=== PATIENT | male | born 1960 | race Hispanic/Latino ===

== ENCOUNTER 2017-08-03 10:48 | Outpatient (CLI) | payer OTHER ==
[2017-08-03 13:00] LABS: Hemoglobin 16.1 g/dL (14.0-18.0); Mean Corpuscular HGB CONC 33.7 g/dL (32.0-36.0); Mean Corpuscular Hemoglobin 30.3 pg (27.0-31.0); Mean Corpuscular Volume 89.7 fl (80.0-94.0); Mean Platelet Volume 7.5 fL (7.4-10.4); Platelet Count 265 thou/uL (130-400); RBC Distribution Width 11.7 % (11.5-14.5); Red Blood Cell (RBC) Count 5.32 mill/uL (4.70-6.10); White Blood Cell (WBC) Count 8.3 thou/uL (4.8-10.8)
[2017-08-03 13:15] LABS: INR-International Normal Ratio 1.1; PTT 33.1 SEC (22.9-36.1); Prothrombin Time 14.3 SEC (12.0-14.7)
[2017-08-03 13:16] LABS: Bilirubin Negative (Negative); Blood, Urine Negative (Negative); Clarity CLEAR (Clear); Glucose, Urine (Dipstick) Negative (Negative); Leukocyte Negative (Negative); Nitrite Negative (Negative); Protein, Urine (Dipstick) Negative (Neg-Trace); Specific Gravity, Urine 1.023 (1.002-1.036); Urobilinogen 0.2 mg/dL (0.2-1.0); pH, Urine 5.5 (5.0-9.0)
[2017-08-03 13:19] LABS: Bacteria/HPF None Seen HPF (None Seen); Hyaline Casts/LPF 0-3 HYALINE CAST LPF (0-3 Hyaline); RBC/HPF 0-3 HPF (0-3); Squamous Epithelial None Seen HPF (0-3); WBC/HPF 0-3 HPF (0-3)
[2017-08-03 13:20] LABS: Anion Gap 11 mmol/L (10-20); BUN (Urea Nitrogen) 9 mg/dL (8.4-25.7); Calc. Creatinine Clearance 0 mL/min (70-130); Calcium 9.4 mg/dL (7.8-10.44); Carbon Dioxide 26 mmol/L (22-29); Chloride 108 mmol/L (98-107); Estimated GFR-MDRD Greater than 90; Glucose 98 mg/dL (70-105); Potassium 4.3 mmol/L (3.5-5.1); Sodium 141 mmol/L (136-145)
--- NOTE | 2017-08-04 06:22 | EKG ---
Test Reason : Blood Pressure : / mmHG Vent. Rate : 051 BPM Atrial Rate : 051 BPM P-R Int : 114 ms QRS Dur : 154 ms QT Int : 488 ms P-R-T Axes : -02 034 029 degrees QTc Int : 449 ms Sinus bradycardia Right bundle branch block Abnormal ECG When compared with ECG of 22-DEC-2015 12:33, Right bundle branch block is now Present Confirmed by GOOD BOYER ([id number]) on 08/04/2017 5:55:50 AM Referred By: MARIA ISABEL Confirmed By:GOOD BOYER
== END 2017-08-03 10:49 | disposition home or self-care (01) ==
LOC: LABBT 10:48
PROVIDERS: ATTEND Urology
DX: Z01.812 Encounter for preprocedural laboratory examination (principal); N40.0 Benign prostatic hyperplasia without lower urinary tract symptoms; R31.29 Other microscopic hematuria; N36.8 Other specified disorders of urethra
CPT/HCPCS: 80048; 81001; 84153; 85027; 85610; 85730; 87086; 93005; 93010

== ENCOUNTER 2017-08-26 08:00 | Outpatient (CLI) | payer OTHER | END 2017-08-26 08:01 | disposition home or self-care (01) | LOC: LABBT 08:00 | PROVIDERS: ATTEND Urology | DX: Z01.818 Encounter for other preprocedural examination (principal); N40.0 Benign prostatic hyperplasia without lower urinary tract symptoms; R31.29 Other microscopic hematuria; N36.9 Urethral disorder, unspecified | CPT/HCPCS: 36415; 86850; 86900; 86901 ==

== ENCOUNTER 2017-09-02 07:58 | Outpatient (CLI) | payer OTHER ==
[2017-09-02 08:52] LABS: Bilirubin Negative (Negative); Blood, Urine Negative (Negative); Clarity CLEAR (Clear); Glucose, Urine (Dipstick) Negative (Negative); Leukocyte Negative (Negative); Nitrite Negative (Negative); Protein, Urine (Dipstick) Negative (Neg-Trace); Specific Gravity, Urine 1.022 (1.002-1.036); Urobilinogen 0.2 mg/dL (0.2-1.0); pH, Urine 5.5 (5.0-9.0)
[2017-09-02 08:54] LABS: Bacteria/HPF None Seen HPF (None Seen); Hyaline Casts/LPF 0-3 HYALINE CAST LPF (0-3 Hyaline); RBC/HPF 0-3 HPF (0-3); Squamous Epithelial None Seen HPF (0-3); WBC/HPF 0-3 HPF (0-3)
[2017-09-02 08:57] LABS: #Eosinphils 0.2 thou/uL (0.0-0.7); #Monocytes 0.5 thou/uL (0.11-0.59); %Basophils 0.4 % (0.0-1.0); %Eosinophils 2.7 % (0.0-10.0); %Monocytes 8.3 % (0.0-10.0); %Neutrophils 52.6 % (42.0-75.0); Hemoglobin 16.4 g/dL (14.0-18.0); Mean Corpuscular HGB CONC 33.3 g/dL (32.0-36.0); Mean Corpuscular Hemoglobin 29.6 pg (27.0-31.0); Mean Corpuscular Volume 88.9 fl (80.0-94.0); Mean Platelet Volume 7.4 fL (7.4-10.4); Platelet Count 260 thou/uL (130-400); RBC Distribution Width 11.8 % (11.5-14.5); Red Blood Cell (RBC) Count 5.53 mill/uL (4.70-6.10); White Blood Cell (WBC) Count 5.6 thou/uL (4.8-10.8)
[2017-09-02 09:05] LABS: PTT 32.6 SEC (22.9-36.1); Prothrombin Time 13.7 SEC (12.0-14.7)
[2017-09-02 09:26] LABS: Anion Gap 10 mmol/L (10-20); BUN (Urea Nitrogen) 16 mg/dL (8.4-25.7); Calc. Creatinine Clearance 0 mL/min (70-130); Calcium 8.9 mg/dL (7.8-10.44); Carbon Dioxide 23 mmol/L (22-29); Chloride 110 mmol/L (98-107); Estimated GFR-MDRD Greater than 90; Glucose 110 mg/dL (70-105); Potassium 4.4 mmol/L (3.5-5.1); Sodium 139 mmol/L (136-145)
== END 2017-09-02 07:59 | disposition home or self-care (01) ==
LOC: LABBT 07:58
PROVIDERS: ATTEND Urology
DX: Z01.812 Encounter for preprocedural laboratory examination (principal); N40.0 Benign prostatic hyperplasia without lower urinary tract symptoms
CPT/HCPCS: 80048; 81001; 84153; 85025; 85610; 85730; 86850; 86900; 86901; 87086

== ENCOUNTER 2017-09-07 05:42 | Observation (INO) | payer OTHER ==
[2017-08-03 11:31] VITALS: BMI 30.9
[2017-09-07] MEDS ORDERED: Levofloxacin 500 mg/D5W 100 ml Premix Bag ONE (06:28)
[2017-09-07] MEDS ORDERED: Fentanyl 100 MCG/2 ML VIAL ONE (06:55)
[2017-09-07] MEDS ORDERED: Ondansetron HCl/PF 4 MG/2 ML Vial ONE ×2 (07:11→15:10)
[2017-09-07] MEDS ORDERED: Midazolam HCl 2 mg/2 ml Vial ONE (07:11)
[2017-09-07] MEDS ORDERED: SUGAMMADEX SODIUM 200 MG/2 ML VIAL ONE (10:30)
[2017-09-07] MEDS ORDERED: hydrALAZINE 20 MG/ML VIAL SLOW IVP PRN ×2 (10:38)
[2017-09-07] MEDS ORDERED: HYDROcodone/Acetaminophen 5/325 mg Tablet PO PRN ×2 (10:38)
[2017-09-07] MEDS ORDERED: Bisacodyl 10 MG SUPP PR PRN (10:38)
[2017-09-07] MEDS ORDERED: Mag-Al 1200 mg/1200 mg/30 ML UDCUP PO PRN (10:38)
[2017-09-07] MEDS ORDERED: Morphine 4 MG/ML VIAL SLOW IVP PRN ×2 (10:38)
[2017-09-07] MEDS ORDERED: Zolpidem Tartrate 5 MG TAB PO PRN (10:38)
[2017-09-07] MEDS ORDERED: diphenhydrAMINE 50 MG/ML VIAL IVP PRN (10:38)
[2017-09-07] MEDS ORDERED: Promethazine HCl 25 MG/ML VIAL SLOW IVP PRN (10:55)
[2017-09-07] MEDS ORDERED: Morphine Sulfate 2 MG/ML SYRINGE SLOW IVP PRN (10:55)
[2017-09-07] MEDS ORDERED: Ondansetron HCl/PF 4 MG/2 ML Vial IVP PRN (10:55)
[2017-09-07 11:06] LABS: #Basophils 0.1 thou/uL (0.0-0.2); #Eosinphils 0.1 thou/uL (0.0-0.7); #Lymphocytes 1.4 thou/uL (1.20-3.40); #Monocytes 0.3 thou/uL (0.11-0.59); #Neutrophils 6.1 thou/uL (1.40-6.50); %Basophils 1.2 % (0.0-1.0); %Eosinophils 0.7 % (0.0-10.0); %Lymphocytes 17.6 % (21.0-51.0); %Monocytes 3.7 % (0.0-10.0); %Neutrophils 76.8 % (42.0-75.0); Hemoglobin 15.3 g/dL (14.0-18.0); Mean Corpuscular HGB CONC 33.4 g/dL (32.0-36.0); Mean Corpuscular Volume 89.8 fl (80.0-94.0); Mean Platelet Volume 7.4 fL (7.4-10.4); Platelet Count 196 thou/uL (130-400); RBC Distribution Width 11.9 % (11.5-14.5); White Blood Cell (WBC) Count 7.9 thou/uL (4.8-10.8)
[2017-09-07 11:31] LABS: Anion Gap 8 mmol/L (10-20); BUN (Urea Nitrogen) 15 mg/dL (8.4-25.7); Calc. Creatinine Clearance 111 mL/min (70-130); Calcium 8.1 mg/dL (7.8-10.44); Carbon Dioxide 23 mmol/L (22-29); Chloride 110 mmol/L (98-107); Estimated GFR-MDRD Greater than 90; Glucose 132 mg/dL (70-105); Potassium 4.5 mmol/L (3.5-5.1); Sodium 136 mmol/L (136-145)
--- NOTE | 2017-09-07 12:25 | OP ---
DATE OF SERVICE: 09/07/2017 PREOPERATIVE DIAGNOSES: A 57-year-old male with, 1. History of benign prostatic hyperplasia. 2. History of microscopic hematuria. POSTOPERATIVE DIAGNOSES: A 57-year-old male with, 1. History of benign prostatic hyperplasia. 2. History of microscopic hematuria. PROCEDURE: Cystoscopy, transurethral resection of prostate /transurethral vaporization of prostate, meatal dilation with Margarette sounds SURGEON: Rosalind Ramos D.O. ANESTHESIA: General. COMPLICATIONS: None apparent. DISPOSITION: To recovery room in stable condition. INTRAVENOUS FLUIDS: Approximately 2 liters. ESTIMATED BLOOD LOSS: Less than 100 mL. SPECIMEN: TUR prostate. DRAINS: 22-Stateless 30 mL with continuous bladder irrigation with clear output. INDICATIONS FOR THE PROCEDURE AND HISTORY: Mr. Davalos is a pleasant 57-year-old male, Syriac speaking, whom I have seen for history of right paratesticular mass. He underwent surgical intervention. This was found to be a benign adenomatoid lesion. The patient has a history of BPH, microscopic hematuria. 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 Cystoscopy demonstrated obstructing prostate and desires to proceed with transurethral resection of prostate. There were nonspecific inflammatory polypoid changes of the prostatic urethra, suspicion low, cytology negative. Risks and complications and indications were reviewed with patient in detail including, but not limited to, bleeding, pain, infection, injury to adjacent organs, urosepsis, urethral bladder injury, stricture formation, clot retention and incontinence was reviewed and he desired to proceed without reservation. DESCRIPTION OF THE PROCEDURE: After an informed consent is signed, the patient is taken to the operating room, placed in a dorsal lithotomy position with the genital area prepped and draped in the usual surgical sterile fashion. Bilateral ELLIE hose, SCDs, and broad-spectrum antibiotics were provided. A 21- Stateless cystoscope was attempted to be passed; however, there was some resistance with the meatus. Therefore, using Hill sounds, we calibrated the meatus to approximately 18 Stateless. This was subsequently dilated to 30 Stateless to accommodate the resectoscope. This staging cystoscopy demonstrated bilobar hyperplasia of prostate with high median bar, again noted is bilateral single system ureter with clear efflux of urine. There was mild trabeculation consistent with chronic outlet obstruction. No bladder tumors were appreciated. At this time, I did transition to an [facility] 26-Stateless resectoscope for transurethral vaporization button plasma probe. We began to perform transurethral vaporization of the prostate. Prior to we did obtain a specimen of the prostatic urethra with polypoid inflammatory lesion and sent as a specimen, obtained with prostate loop. At this time, using the button vapor after plasma probe, we vaporized the prostate. Upon performing plasma vaporization, there was a right lateral dorsal component that was difficult to engage. There were intermittent changes consistent with chronic prostatitis. Therefore, using a gyrus bipolar loop, I resected resecting the lateral lobes. I did transition back to the button probe and vaporized the residual tissue. At the end of the procedure, there was a wide bladder neck with resolution of obstructing component. Good hemostasis obtained with the button plasma probe. A 22-Stateless three-way Evans catheter was able to be passed without difficulty, 30 mL insufflated. CBI on low rate with pink-tinged urine. We will observe the patient overnight on CBI. If it is clear, we will initiate voiding trial tomorrow morning. MTDD
[2017-09-07] MEDS: Sodium Chloride 0.9% 1,000 ML IV SCH (12:31)
[2017-09-07] MEDS: cefTRIAXone\\ROCEPHIN 1 GM in Sodium Chloride 0.9% 100 ML IVPB SCH (14:09)
[2017-09-07] MEDS ORDERED: Lidocaine 1% PF 5 ML VIAL ONE (15:10)
[2017-09-07] MEDS ORDERED: Dexamethasone 20 MG/5 ML VIAL ONE (15:10)
[2017-09-07] MEDS ORDERED: PROPOFOL 200 MG/20 ML VIAL ONE (15:10)
[2017-09-07] MEDS ORDERED: PHENYLEPHRINE-NS 100 MCG/ML 10 ML SYRINGE ONE (15:10)
[2017-09-07] MEDS ORDERED: Ketorolac Tromethamine 30 MG/ML VIAL ONE (15:10)
[2017-09-07] MEDS ORDERED: ePHEDrine/0.9% NaCl/PF SYRINGE 50 mg/10 ml ONE (15:10)
[2017-09-07] MEDS ORDERED: Glycopyrrolate 0.2 MG/ML 5 ML SYRINGE ONE (15:10)
[2017-09-07] MEDS ORDERED: diphenhydrAMINE 50 MG/ML VIAL ONE (15:10)
[2017-09-07] MEDS ORDERED: Lisinopril 5 MG TAB PO SCH (21:00)
[2017-09-07] MEDS ORDERED: Famotidine/PF 20 mg/2ml Vial SLOW IVP SCH (21:00)
[2017-09-07] MEDS ORDERED: Atorvastatin Calcium 20 MG TAB PO SCH (21:00)
[2017-09-07] MEDS ORDERED: Tamsulosin HCl 0.4 MG CAP PO SCH (21:00)
[2017-09-07] MEDS: Famotidine 20 MG TAB PO SCH (21:04)
[2017-09-07] MEDS: Docusate 100 MG CAP PO SCH (21:05)
[2017-09-08] MEDS: Sodium Chloride 0.9% 1,000 ML IV SCH ×2 (00:25→12:14)
[2017-09-08 04:35] LABS: #Eosinphils 0.1 thou/uL (0.0-0.7); #Lymphocytes 1.3 thou/uL (1.20-3.40); #Monocytes 0.9 thou/uL (0.11-0.59); #Neutrophils 13.2 thou/uL (1.40-6.50); %Basophils 0.1 % (0.0-1.0); %Eosinophils 0.4 % (0.0-10.0); %Lymphocytes 8.3 % (21.0-51.0); %Monocytes 5.6 % (0.0-10.0); %Neutrophils 85.6 % (42.0-75.0); Hemoglobin 15.8 g/dL (14.0-18.0); Mean Corpuscular HGB CONC 33.5 g/dL (32.0-36.0); Mean Corpuscular Volume 89.5 fl (80.0-94.0); Mean Platelet Volume 7.6 fL (7.4-10.4); Platelet Count 244 thou/uL (130-400); RBC Distribution Width 11.9 % (11.5-14.5); Red Blood Cell (RBC) Count 5.28 mill/uL (4.70-6.10); White Blood Cell (WBC) Count 15.4 thou/uL (4.8-10.8)
[2017-09-08 04:47] LABS: Anion Gap 11 mmol/L (10-20); BUN (Urea Nitrogen) 12 mg/dL (8.4-25.7); Calc. Creatinine Clearance 112 mL/min (70-130); Calcium 8.5 mg/dL (7.8-10.44); Carbon Dioxide 25 mmol/L (22-29); Chloride 108 mmol/L (98-107); Estimated GFR-MDRD Greater than 90; Glucose 124 mg/dL (70-105); Potassium 4.8 mmol/L (3.5-5.1); Sodium 139 mmol/L (136-145)
[2017-09-08] MEDS: Famotidine 20 MG TAB PO SCH (08:51)
[2017-09-08] MEDS: Docusate 100 MG CAP PO SCH (08:52)
[2017-09-08] MEDS: cefTRIAXone\\ROCEPHIN 1 GM in Sodium Chloride 0.9% 100 ML IVPB SCH (12:14)
[2017-09-08 15:42] VITALS: BP 120/79; TEMP 98.1
--- NOTE | 2017-09-09 01:52 | DIS ---
DATE OF ADMISSION: 09/07/2017 DATE OF DISCHARGE: 09/08/2017 DISPOSITION: Home to self-care. CONDITION: Stable. FOLLOWUP: followup appointment next 09/14/2017 at 01:45 for recheck peak flow PVR. DISCHARGE MEDICATIONS: Include ciprofloxacin 500 mg 1 p.o. b.i.d. for 7 days, [place] 5/325 #50, [place] e, azo p.r.n. He may resume his home medications. No aspirin or ibuprofen products is advised. ACTIVITY: No heavy lifting over 10 pounds, no straddling activity, prolonged walking until followup appointment. BRIEF HOSPITAL COURSE: Mr. Davalos is a pleasant 57-year-old male, Italian speaking, who initi ally presented with a right paratesticular mass. He underwent surgery which was uneventful with no e vidence of testicular cancer. He presented with BPH symptoms on Flomax, microscopic hematuria worked up, demonstrated a polypoid inflammatory lesion of the prostate which was nonspecific, although susp icion low, biopsy and treatment was advised. He desired to proceed with concomitant transurethral re section of prostate. The patient was treated with TURP/TUVP. Pathology is negative for malignancy. Intraoperatively, his prostate did demonstrate significant changes consistent with chronic prostatit is. His kidney function, H and H is stable with no evidence of fever. He has not required any pain medication for narcotics. He is voided urine for a voiding trial today demonstrates clear dilute uri ne. No significant postvoid residual, PVR 40 Ml. He desires to be discharged home and is stable to do so.
== END 2017-09-08 17:15 | disposition home or self-care (01) ==
LOC: CANPREIN → SDC 05:42 → SURG B 11:07
PROVIDERS: ADMIT Urology; ATTEND Urology
PROC: 0VT08ZZ Resection of Prostate, Via Natural or Artificial Opening Endoscopic (ICD-10-PCS; principal; 2017-09-08)
DX: N40.0 Benign prostatic hyperplasia without lower urinary tract symptoms (principal); R31.29 Other microscopic hematuria; N34.2 Other urethritis; F17.210 Nicotine dependence, cigarettes, uncomplicated; Z79.899 Other long term (current) drug therapy
CPT/HCPCS: 36415; 80048; 85025; 88305; 96360; 96361; G0378; J0696; J1100; J1200; J1885; J1956; J2001; J2250; J2405; J2704; J3010; J7050